=== PATIENT | female | born 1980 | race Caucasian/White ===

== ENCOUNTER 2020-04-05 19:11 | Emergency (ER) | payer OTHER, SELFPAY ==
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
[2020-04-05 19:12] VITALS: BP 164/90; PULSE 64; RESP 16; TEMP 36.7; O2SAT 100
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
[2020-04-05 21:09] VITALS: BP 148/92; PULSE 65; RESP 16; TEMP 36.6; O2SAT 100
== END 2020-04-05 21:09 | disposition home or self-care (01) ==
PROVIDERS: Emergency Provider Emergency Medicine
DX: S16.1XXA Strain of muscle, fascia and tendon at neck level, initial encounter (principal); V43.52XA Car driver injured in collision with other type car in traffic accident, initial encounter
CPT/HCPCS: 72125; 73521; 81025; 99284

== ENCOUNTER 2024-09-30 12:02 | Emergency (ER) | payer OTHER, SELFPAY ==
--- OUTSIDE RECORDS SUMMARY | 2024-09-30 12:05 | XMS_ITS | Referral Summary ---
Author Organization [facility] Address [address] [place] [address] Care Team Providers Care Nutrient Management Specialist Name Role Phone Luigi Yuan MD Primary Care Provider [phone] Encounters Date Type Department Care Team Description 07/16/2024 Telephone [facility] [address] [facility] [address] [place] [address] Antionette Reid NP 07/16/2024 Orders Only [facility] [address] [facility] [address] [place] [address] Antionette Reid NP Abnormal mammogram of right breast (Primary Dx) 07/14/2024 10:14 AM DIRECTOR GLOBAL DEVELOPMENT - 07/14/2024 11:59 PM DIRECTOR GLOBAL DEVELOPMENT Hospital Encounter [facility] ([facility]) [address] [place] [phone] Abnormal mammogram of right breast Discharge Disposition: Discharge to home or self care 07/14/2024 10:07 AM DIRECTOR GLOBAL DEVELOPMENT - 07/14/2024 11:59 PM DIRECTOR GLOBAL DEVELOPMENT Hospital Encounter [facility] ([facility]) [address] [place] [id number] Abnormal mammogram of right breast Discharge Disposition: Discharge to home or self care from Last 3 Months Allergies Active Allergy Reactions Criticality Noted Date Comments Mold Cough,Eye irritation,Headache Low 2020 Medications fluticasone propionate (FLONASE) 50 mcg/actuation nasal spray Administer 1 spray into each nostril daily Active azelastine (ASTELIN) 137 mcg (0.1 %) nasal spray Administer 1 spray into each nostril 2 (two) times a day Use in each nostril as directed Active diazePAM (VALIUM) 5 mg tabletIndicatio ns:Muscle Spasm Place vaginally every other night. 15 tablet 3 Active Active Problems Problem Noted Date Diagnosed Date Gluten intolerance 01/30/2021 Routine physical examination 10/13/2020 Assessment & Plan (10/31/2022 9:05 AM DIRECTOR GLOBAL DEVELOPMENT): Checking labs per routine and pertaining to problems listed . HM items reviewed and updated . No new concerns. Assessment & Plan (10/25/2021 8:34 AM DIRECTOR GLOBAL DEVELOPMENT): Checking labs per routine and pertaining to problems listed . HM items reviewed and updated . No new concerns. Assessment & Plan (10/13/2020 4:19 PM DIRECTOR GLOBAL DEVELOPMENT): Checking labs per routine and pertaining to problems listed . HM items reviewed and updated . No new concerns. Chronic pain of both knees 10/13/2020 Assessment & Plan (10/31/2022 9:12 AM DIRECTOR GLOBAL DEVELOPMENT): Trial of osteobiflex supplements Assessment & Plan (10/13/2020 4:42 PM DIRECTOR GLOBAL DEVELOPMENT): Likely some tendonitis. Trial of voltaren gel. Further eval if progressive complaints. Pain of right hip joint 07/30/2019 Assessment & Plan (07/30/2019 10:21 AM DIRECTOR GLOBAL DEVELOPMENT): Working on physical therapy first. No obvious complications. Psoriasis 10/23/2018 Assessment & Plan (10/25/2021 8:52 AM DIRECTOR GLOBAL DEVELOPMENT): Minimal now. Assessment & Plan (10/13/2020 4:30 PM DIRECTOR GLOBAL DEVELOPMENT): No overt dermatologic complaints with this. Anemia 01/23/2016 Overview (10/23/2018): Anemia Assessment & Plan (10/25/2021 8:51 AM DIRECTOR GLOBAL DEVELOPMENT): Checking labs Assessment & Plan (10/13/2020 4:29 PM DIRECTOR GLOBAL DEVELOPMENT): Very low iron and encouraged supplements. She will try and take more often. 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 Assessment & Plan (05/17/2019 7:01 AM CDT): Most symptoms c/w ibs C. However she remains concerned given the distension. No other concerns Offer linzess. Female stress incontinence 12/27/2010 Incomplete bladder emptying 12/27/2010 Uterovaginal prolapse, incomplete 12/27/2010 Generalized anxiety disorder 12/06/2010 Assessment & Plan (10/31/2022 9:07 AM DIRECTOR GLOBAL DEVELOPMENT): Doing great with rare xanax Assessment & Plan (10/25/2021 8:36 AM DIRECTOR GLOBAL DEVELOPMENT): No obvious recent symptoms. She has a lot of stress. Assessment & Plan (10/13/2020 4:30 PM DIRECTOR GLOBAL DEVELOPMENT): She is doing great with this with only very rare xanax. Resolved Problems Problem Noted Date Diagnosed Date Resolved Date Generalized abdominal pain 05/14/2019 0 10/13/2020 Immunizations Name Administration Dates Next Due Tdap 10/31/2022 Social History Tobacco Use Types Packs/Day Years Used Date Smoking Tobacco: Never Smokeless Tobacco: Never Alcohol Use Standard Drinks/Week Comments Yes 1 (1 standard drink = 0.6 oz pur e alcohol) AUDIT-C Answer Date Recorded Q1: How often do you have a drink containing alc ohol? 2-4 times a month 10/31/2022 Q2: How many drinks containi ng alcohol do you have on a typical day when you are drinking? 1 or 2 10/31/2022 Q3: How often do you have si x or more drinks on one occasion? Never 10/31/2022 PHQ-2 Answer Date Recorded PHQ-2 Total Score (If total score is 3 or more points, staff should administer the PHQ-9) 0 10/31/2022 Comments No Sex and Gender Information Value Date Recorded Sex Assigned at Not on file Legal Sex Female 3:58 AM DIRECTOR GLOBAL DEVELOPMENT Gender Identity Female 10/12/2020 4:44 PM DIRECTOR GLOBAL DEVELOPMENT Sexual Orientation Straight 10/12/2020 4: 44 PM DIRECTOR GLOBAL DEVELOPMENT Last Filed Vital Signs Vital Sign Reading Time Taken Comments Blood Pressure 124/78 02/18/2023 4:04 PM CDT Pulse 80 10/31/2022 8:47 AM DIRECTOR GLOBAL DEVELOPMENT Temperature 36.6 C (97.9 F) 10/25/2021 8:23 AM DIRECTOR GLOBAL DEVELOPMENT Respiratory Rate - - Oxygen Saturation 98% 10/31/2022 8:47 AM DIRECTOR GLOBAL DEVELOPMENT Inhaled Oxygen Concentration - - Weight 67.6 kg (149 lb) 02/18/2023 4:04 PM CDT Height 157.5 cm (5' 2 ) 02/18/2023 4:04 PM CDT Body Mass Index 27.25 02/18/2023 4:04 PM CDT Plan of Treatment Not on file Procedures Procedure Name Priority Date/Time Associated Diagnosis Comments US BREAST RIGHT LIMITED Schedule Routine, Read Routine (OP Routine) 07/14/2024 11:04 AM DIRECTOR GLOBAL DEVELOPMENT Abnormal mammogram of right breast DIAGNOSTIC MAMMOGRAM RIGHT W MAURICIO Schedule Routine, Read Routine (OP Routine) 07/14/2024 10:56 AM DIRECTOR GLOBAL DEVELOPMENT Abnormal mammogram of right breast SCREENING MAMMOGRAM BILATERAL W MAURICIO Schedule Routine, Read Routine (OP Routine) 12/03/2023 1:29 PM CDT Screening mammogram, encounter for from Last 3 Months or Most Recently Relevant to Health Maintenance Results * US Breast Right Limited (07/14/2024 11:04 AM DIRECTOR GLOBAL DEVELOPMENT) Anatomical Region Laterality Modality Breast Right Ultrasound 07/14/2024 11:1 4 AM DIRECTOR GLOBAL DEVELOPMENT Impressions 07/14/2024 2:07 PM DIRECTOR GLOBAL DEVELOPMENT 1. Stable cyst/cluster of cysts within the right breast the 9 o'clock position 5 cm from the nipple, unchanged since 01/05/2024. Follow-up with right breast ultrasound in 6 months is recommended to ensure stability. 2. No new suspicious mammographic or sonographic findings in the right breast. OVERALL FINAL ASSESSMENT: BI-RADS Category 3: Probably Benign. RECOMMENDATION: Recommend follow-up diagnostic breast imaging in 6 months with bilateral diagnostic mammogram and right breast ultrasound. Dictated by: Ced Mensah MD The radiology attending physician has personally reviewed this study, and had reviewed and/or edited this written report and agrees with it. Electronically signed by: Kellee Holland M.D. Narrative 07/14/2024 2:07 PM DIRECTOR GLOBAL DEVELOPMENT EXAMINATION: RIGHT UNILATERAL DIGITAL DIAGNOSTIC MAMMOGRAM AND DIGITAL BREAST TOMOSYNTHESIS; RIGHT BREAST SONOGRAM HISTORY: 43-year-old female presenting for follow-up of category 3 probably benign right breast complicated cyst COMPARISON: Diagnostic mammogram and ultrasound dated 01/05/2024 and priors dating back to 2021. TECHNIQUE: Full field digital mammographic views of the RIGHT breast were performed, including computer aided detection (CAD) and digital breast tomosynthesis (DBT). Directed ultrasound evaluation of the RIGHT breast was performed. BREAST PARENCHYMAL COMPOSITION: The breasts are heterogeneously dense, which may obscure small masses. MAMMOGRAM FINDINGS: On spot compression images, there is a stable 0.8 cm equal density mass with partially obscured margins in the upper outer right breast at mid to posterior depth. There is no new suspicious mass, grouped calcifications, architectural distortion noted within the right breast. SONOGRAM FINDINGS: Targeted sonographic images of the RIGHT breast at the 9 o'clock position 5 cm from the nipple, there is an unchanged 0.9 cm x 0.6 cm x 0.2 cm circumscribed oval anechoic mass.. Procedure Note Kellee Holladn MD - 07/14/2024 EXAMINATION: RIGHT UNILATERAL DIGITAL DIAGNOSTIC MAMMOGRAM AND DIGITAL BREAST TOMOSYNTHESIS; RIGHT BREAST SONOGRAM HISTORY: 43-year-old female presenting for follow-up of category 3 probably benign right breast complicated cyst COMPARISON: Diagnostic mammogram and ultrasound dated 01/05/2024 and priors dating back to 2021. TECHNIQUE: Full field digital mammographic views of the RIGHT breast were performed, including computer aided detection (CAD) and digital breast tomosynthesis (DBT). Directed ultrasound evaluation of the RIGHT breast was performed. BREAST PARENCHYMAL COMPOSITION: The breasts are heterogeneously dense, which may obscure small masses. MAMMOGRAM FINDINGS: On spot compression images, there is a stable 0.8 cm equal density mass with partially obscured margins in the upper outer right breast at mid to posterior depth. There is no new suspicious mass, grouped calcifications, architectural distortion noted within the right breast. SONOGRAM FINDINGS: Targeted sonographic images of the RIGHT breast at the 9 o'clock position 5 cm from the nipple, there is an unchanged 0.9 cm x 0.6 cm x 0.2 cm circumscribed oval anechoic mass.. IMPRESSION: 1. Stable cyst/cluster of cysts within the right breast the 9 o'clock position 5 cm from the nipple, unchanged since 01/05/2024. Follow-up with right breast ultrasound in 6 months is recommended to ensure stability. 2. No new suspicious mammographic or sonographic findings in the right breast. OVERALL FINAL ASSESSMENT: BI-RADS Category 3: Probably Benign. RECOMMENDATION: Recommend follow-up diagnostic breast imaging in 6 months with bilateral diagnostic mammogram and right breast ultrasound. Dictated by: Ced Mensah MD The radiology attending physician has personally reviewed this study, and had reviewed and/or edited this written report and agrees with it. Electronically signed by: Kellee Holland M.D. Antionette Reid NP IMG MAMMO PROCEDURES Final Result * Diagnostic Mammogram Right W Mauricio (07/14/2024 10:56 AM DIRECTOR GLOBAL DEVELOPMENT) Anatomical Region Laterality Modality Breast Right Mammography 07/14/2024 11:1 4 AM DIRECTOR GLOBAL DEVELOPMENT Impressions 07/14/2024 2:07 PM DIRECTOR GLOBAL DEVELOPMENT 1. Stable cyst/cluster of cysts within the right breast the 9 o'clock position 5 cm from the nipple, unchanged since 01/05/2024. Follow-up with right breast ultrasound in 6 months is recommended to ensure stability. 2. No new suspicious mammographic or sonographic findings in the right breast. OVERALL FINAL ASSESSMENT: BI-RADS Category 3: Probably Benign. RECOMMENDATION: Recommend follow-up diagnostic breast imaging in 6 months with bilateral diagnostic mammogram and right breast ultrasound. Dictated by: Ced Mensah MD The radiology attending physician has personally reviewed this study, and had reviewed and/or edited this written report and agrees with it. Electronically signed by: Kellee Holland M.D. Narrative 07/14/2024 2:07 PM DIRECTOR GLOBAL DEVELOPMENT EXAMINATION: RIGHT UNILATERAL DIGITAL DIAGNOSTIC MAMMOGRAM AND DIGITAL BREAST TOMOSYNTHESIS; RIGHT BREAST SONOGRAM HISTORY: 43-year-old female presenting for follow-up of category 3 probably benign right breast complicated cyst COMPARISON: Diagnostic mammogram and ultrasound dated 01/05/2024 and priors dating back to 2021. TECHNIQUE: Full field digital mammographic views of the RIGHT breast were performed, including computer aided detection (CAD) and digital breast tomosynthesis (DBT). Directed ultrasound evaluation of the RIGHT breast was performed. BREAST PARENCHYMAL COMPOSITION: The breasts are heterogeneously dense, which may obscure small masses. MAMMOGRAM FINDINGS: On spot compression images, there is a stable 0.8 cm equal density mass with partially obscured margins in the upper outer right breast at mid to posterior depth. There is no new suspicious mass, grouped calcifications, architectural distortion noted within the right breast. SONOGRAM FINDINGS: Targeted sonographic images of the RIGHT breast at the 9 o'clock position 5 cm from the nipple, there is an unchanged 0.9 cm x 0.6 cm x 0.2 cm circumscribed oval anechoic mass.. Procedure Note Kellee Holland MD - 07/14/2024 EXAMINATION: RIGHT UNILATERAL DIGITAL DIAGNOSTIC MAMMOGRAM AND DIGITAL BREAST TOMOSYNTHESIS; RIGHT BREAST SONOGRAM HISTORY: 43-year-old female presenting for follow-up of category 3 probably benign right breast complicated cyst COMPARISON: Diagnostic mammogram and ultrasound dated 01/05/2024 and priors dating back to 2021. TECHNIQUE: Full field digital mammographic views of the RIGHT breast were performed, including computer aided detection (CAD) and digital breast tomosynthesis (DBT). Directed ultrasound evaluation of the RIGHT breast was performed. BREAST PARENCHYMAL COMPOSITION: The breasts are heterogeneously dense, which may obscure small masses. MAMMOGRAM FINDINGS: On spot compression images, there is a stable 0.8 cm equal density mass with partially obscured margins in the upper outer right breast at mid to posterior depth. There is no new suspicious mass, grouped calcifications, architectural distortion noted within the right breast. SONOGRAM FINDINGS: Targeted sonographic images of the RIGHT breast at the 9 o'clock position 5 cm from the nipple, there is an unchanged 0.9 cm x 0.6 cm x 0.2 cm circumscribed oval anechoic mass.. IMPRESSION: 1. Stable cyst/cluster of cysts within the right breast the 9 o'clock position 5 cm from the nipple, unchanged since 01/05/2024. Follow-up with right breast ultrasound in 6 months is recommended to ensure stability. 2. No new suspicious mammographic or sonographic findings in the right breast. OVERALL FINAL ASSESSMENT: BI-RADS Category 3: Probably Benign. RECOMMENDATION: Recommend follow-up diagnostic breast imaging in 6 months with bilateral diagnostic mammogram and right breast ultrasound. Dictated by: Ced Mensah MD The radiology attending physician has personally reviewed this study, and had reviewed and/or edited this written report and agrees with it. Electronically signed by: Kellee Holland M.D. Antionette Reid NP IMG MAMMO PROCEDURES Final Result * (ABNORMAL) Screening Mammogram Bilateral W Mauricio (12/03/2023 1:29 PM CDT) Anatomical Region Laterality Modality Breast Bilateral Mammography Narrative 12/03/2023 4:41 PM CDT Examination: Screening Mammogram Bilateral W Mauricio: 12/03/23 Clinical: Screening mammogram, encounter for. Prior Study Comparisons: Comparison was made to the prior available relevant studies at the time of interpretation. Findings: Screening Mammogram Bilateral W Mauricio Right 1) Asymmetry: There is an asymmetry seen in the upper region of the right breast. Left No significant masses, malignant type calcifications, skin thickening, nipple retraction, or significant lymphadenopathy is noted in this breast. The CAD review showed no significant findings. The breasts are heterogeneously dense, which may obscure small masses. The patient will be notified of results by letter. Impression: BI-RADS ATLAS category (overall): 0 - Incomplete: Needs Additional Imaging Evaluation Overall Assessment: 0 - Incomplete: Needs Additional Imaging Evaluation Recommendation: - Additional Mammography views with possible ultrasound. us Self Screening Mammogram IMG MAMMO PROCEDURES Fi nal Result from Last 3 Months or Most Recently Relevant to Health Maintenance Insurance [employer] [facility] Address: [place] [address] [employer] Address: [place] [address] [facility] [facility] Address: [place] [phone] [facility] [employer] [facility] Address: [address] [place] [id number] Care Teams Nutrient Management Specialist Relationship Specialty Start Date End Date Luigi Yuan MD PCP - General 04/02/17
--- OUTSIDE RECORDS SUMMARY | 2024-09-30 12:05 | XMS_ITS | Referral Summary ---
Author Organization [facility] Address [address] [facility] [place] [address] Care Team Providers Care Corporate Fitness Program Coordinator Name Role Phone Luigi Yuan MD Primary Care Provider [phone] Source Comments [facility],non-owned Affiliates and Associated Physician Practices is amultiple site organization consisting of ambulatory clinics and hospital sitesin [place], [place], [place] and [place]. This disclosure is being madepursuant to the Care Everywhere program and may not contain all information available regarding this patient. Last updated 18.[employer] [facility] Allergies No known active allergies Medications Be aware that medications may not be up to date on this document. Always verify current medications with the patient. No known medications Active Problems Problem Noted Date Diagnosed Date Anxiety Psoriasis Social History Tobacco Use Types Packs/Day Years Used Date Smoking Tobacco: Never Smokeless Tobacco: Never Tobacco Cessation:Counseling Given: No Sex and Gender Information Value Date Recorded Sex Assigned at Not on file Gender Identity Not on file Sexual Orientation Not on file Last Filed Vital Signs Vital Sign Reading Time Taken Comments Blood Pressure 103/81 05/25/2022 11:05 AM CDT Pulse 98 05/25/2022 11:05 AM CDT Temperature 36.6 C (97.8 F) 05/25/2022 11:05 AM CDT Respiratory Rate 18 05/25/2022 11:05 AM CDT Oxygen Saturation 100% 05/25/2022 11:05 AM CDT Inhaled Oxygen Concentration - - Weight 63.5 kg (140 lb) 05/25/2022 11:05 AM CDT Height 157.5 cm (5' 2 ) 09/25/2016 2:50 PM RUSSIAN HISTORY PROFESSOR Body Mass Index 25.61 09/25/2016 2:50 PM RUSSIAN HISTORY PROFESSOR Plan of Treatment Not on file Care Teams Corporate Fitness Program Coordinator Relationship Specialty Start Date End Date Luigi Yuan MD [address] [place] [address] DR Werner [address] [phone] PCP - General Internal Medicine 09/25/16
--- OUTSIDE RECORDS SUMMARY | 2024-09-30 12:05 | XMS_ITS | Clinical Summary ---
Author Organization [facility] Address [address] [place] [address] Care Team Providers Care Manager Of Change Name Role Phone Luigi Yuan MD Primary Care Provider [phone] Allergies Active Allergy Reactions Criticality Noted Date [...] 10/13/2020 Assessment & Plan (10/31/2022 9:05 AM TECHNICAL PHOTOGRAPHER): Checking labs per routine and pertaining to problems listed . HM items reviewed and updated . No new concerns. Assessment & Plan (10/25/2021 8:34 AM TECHNICAL PHOTOGRAPHER): Checking labs per routine and pertaining to problems listed . HM items reviewed and updated . No new concerns. Assessment & Plan (10/13/2020 4:19 PM TECHNICAL PHOTOGRAPHER): Checking labs per routine and pertaining to problems listed . HM items reviewed and updated . No new concerns. Chronic pain of both knees 10/13/2020 Assessment & Plan (10/31/2022 9:12 AM TECHNICAL PHOTOGRAPHER): Trial of osteobiflex supplements Assessment & Plan (10/13/2020 4:42 PM TECHNICAL PHOTOGRAPHER): Likely some tendonitis. Trial of voltaren gel. Further eval if progressive complaints. Pain of right hip joint 07/30/2019 Assessment & Plan (07/30/2019 10:21 AM TECHNICAL PHOTOGRAPHER): Working on physical therapy first. No obvious complications. Psoriasis 10/23/2018 Assessment & Plan (10/25/2021 8:52 AM TECHNICAL PHOTOGRAPHER): Minimal now. Assessment & Plan (10/13/2020 4:30 PM TECHNICAL PHOTOGRAPHER): No overt dermatologic complaints with this. Anemia 01/23/2016 Overview (10/23/2018): Anemia Assessment & Plan (10/25/2021 8:51 AM TECHNICAL PHOTOGRAPHER): Checking labs Assessment & Plan (10/13/2020 4:29 PM TECHNICAL PHOTOGRAPHER): Very low iron and encouraged supplements. She will try and take more often. Irritable bowel syndrome 06/11/2013 Overview (10/31/2022): Chronic constipation Assessment & Plan (10/31/2022 9:07 AM TECHNICAL PHOTOGRAPHER): She will try some fiber supplements Assessment & Plan (10/13/2020 4:30 PM TECHNICAL PHOTOGRAPHER): For now treating supplemental Assessment & Plan (07/30/2019 10:20 AM TECHNICAL PHOTOGRAPHER): Continue with current regimen > Miralax for a while as a trial and investgation of food issues with primary health care nurse. Assessment & Plan (05/17/2019 7:01 AM CDT): Most symptoms c/w ibs C. However she remains concerned given the distension. No other concerns Offer linzess. Female stress incontinence 12/27/2010 Incomplete bladder emptying 12/27/2010 Uterovaginal prolapse, incomplete 12/27/2010 Generalized anxiety disorder 12/06/2010 Assessment & Plan (10/31/2022 9:07 AM TECHNICAL PHOTOGRAPHER): Doing great with rare xanax Assessment & Plan (10/25/2021 8:36 AM TECHNICAL PHOTOGRAPHER): No obvious recent symptoms. She has a lot of stress. Assessment & Plan (10/13/2020 4:30 PM TECHNICAL PHOTOGRAPHER): She is doing great with this with only very rare xanax. Resolved Problems Problem Noted Date Diagnosed Date Resolved Date Generalized abdominal pain 05/14/2019 0 10/13/2020 Encounters Date Type Department Care Team Description 07/16/2024 Telephone [facility] [address] [facility] [address] [place] [phone] Antionette Reid NP 07/16/2024 Orders Only [facility] [address] [facility] [address] [place] [phone] Antionette Reid NP Abnormal mammogram of right breast (Primary Dx) 07/14/2024 10:14 AM TECHNICAL PHOTOGRAPHER - 07/14/2024 11:59 PM TECHNICAL PHOTOGRAPHER Hospital Encounter [facility] [address] [place] [address] Abnormal mammogram of right breast Discharge Disposition: Discharge to home or self care 07/14/2024 10:07 AM TECHNICAL PHOTOGRAPHER - 07/14/2024 11:59 PM TECHNICAL PHOTOGRAPHER Hospital Encounter [facility] [place] [address] Abnormal mammogram of right breast Discharge Disposition: Discharge to home or self care from Last 3 Months Immunizations Name Administration Dates Next Due Tdap 10/31/2022 Surgical History Surgery Date Site/Laterality Comments NO PAST SURGERIES Medical History Medical History Date Comments Allergic rhinitis Psoriasis Concussion 1996 Pyelonephritis 1989 Anxiety Migraine Chronic constipation Family History Medical History Relation Name Comments Depression Brother Hypertension Father Thyroid disease Father Thyroid disease Mother Urticaria Mother Thyroid disease Sister Relation Name Status Comments Brother Alive Father Alive Mother Alive Sister Alive Social History Tobacco Use Types Packs/Day Years [...] on file Legal Sex Female 3:58 AM TECHNICAL PHOTOGRAPHER Gender Identity Female 10/12/2020 4:44 PM TECHNICAL PHOTOGRAPHER Sexual Orientation Straight 10/12/2020 4: 44 PM TECHNICAL PHOTOGRAPHER Obstetrics History Para Term AB IAB SAB Ectopic Multiple Livin g Live Births 0 0 0 0 0 0 0 0 0 0 0 Last Filed Vital Signs Vital Sign Reading Time Taken Comments Blood Pressure 124/78 02/18/2023 4:04 PM CDT Pulse 80 10/31/2022 8:47 AM TECHNICAL PHOTOGRAPHER Temperature 36.6 C (97.9 F) 10/25/2021 8:23 AM TECHNICAL PHOTOGRAPHER Respiratory Rate - - Oxygen Saturation 98% 10/31/2022 8:47 AM TECHNICAL PHOTOGRAPHER Inhaled Oxygen Concentration - - Weight 67.6 kg (149 lb) 02/18/2023 4:04 PM CDT Height 157.5 cm (5' 2 ) 02/18/2023 4:04 PM CDT Body Mass Index 27.25 02/18/2023 4:04 PM CDT Plan of Treatment Health Maintenance Due Date Last Done Comments Cervical Cancer Screening 1981 Hepatitis C Screening 1981 Hepatitis B Screening 11/18/1999 Depression Screening 11/01/2023 10/31/2022, 10/26/19 Regular Well Visit/Exam 18-64 02/19/2024 02/18/2023, 10/31/2022, 02/12/2022, Additional history exists Covid-19 Vaccine (3 - season) 2024 04/25/2021, 03/14/2021 Influenza Vaccine (#1) 2024 Breast Cancer Screening-Mammogram 12/02/2024 12/03/2023, 03/18/2022 DTaP/Tdap/Td Vaccine (2 - Td or Tdap) 10/31/2032 10/31/2022 HPV Vaccines Aged Out No longer eligi ble based on patient's age to complete this topic Pneumococcal vaccine <65 Aged Out No longer eligible based on patient's age to complete this topic Varicella Vaccines Discontinued Procedures Procedure Name Priority Date/Time Associated Diagnosis Comments US BREAST RIGHT LIMITED Schedule Routine, Read Routine (OP Routine) 07/14/2024 11:04 AM TECHNICAL PHOTOGRAPHER Abnormal mammogram of right breast DIAGNOSTIC MAMMOGRAM RIGHT W MAURICIO Schedule Routine, Read Routine (OP Routine) 07/14/2024 10:56 AM TECHNICAL PHOTOGRAPHER Abnormal mammogram of right breast SCREENING MAMMOGRAM BILATERAL W MAURICIO Schedule Routine, Read Routine (OP Routine) 12/03/2023 1:29 PM CDT Screening mammogram, encounter for from Last 3 Months or Most Recently Relevant to Health Maintenance Results * US Breast Right Limited (07/14/2024 11:04 AM TECHNICAL PHOTOGRAPHER) Anatomical Region Laterality Modality Breast Right Ultrasound 07/14/2024 11:1 4 AM TECHNICAL PHOTOGRAPHER Impressions 07/14/2024 2:07 PM TECHNICAL PHOTOGRAPHER 1. Stable cyst/cluster of cysts within the [...] Kellee Holland M.D. Narrative 07/14/2024 2:07 PM TECHNICAL PHOTOGRAPHER EXAMINATION: RIGHT UNILATERAL DIGITAL DIAGNOSTIC MAMMOGRAM AND [...] Mammogram Right W Mauricio (07/14/2024 10:56 AM TECHNICAL PHOTOGRAPHER) Anatomical Region Laterality Modality Breast Right Mammography 07/14/2024 11:1 4 AM TECHNICAL PHOTOGRAPHER Impressions 07/14/2024 2:07 PM TECHNICAL PHOTOGRAPHER 1. Stable cyst/cluster of cysts within the [...] Kellee Holland M.D. Narrative 07/14/2024 2:07 PM TECHNICAL PHOTOGRAPHER EXAMINATION: RIGHT UNILATERAL DIGITAL DIAGNOSTIC MAMMOGRAM AND [...] Most Recently Relevant to Health Maintenance Insurance [id number] H[facility]/PPO Address: [address] [place] [address] [facility] HMO/PPO Address: [place] [address] [facility] HMO/PPO Address: [address] [place], [place] [id number] [facility] H[facility]/PPO Address: [facility] [id number] [place] [address] Care Teams Manager Of Change Relationship Specialty Start Date End Date Luigi Yuan MD PCP - General 04/02/17
--- OUTSIDE RECORDS SUMMARY | 2024-09-30 12:05 | XMS_ITS | Clinical Summary ---
Author Organization [facility] [employer] Address [address] [facility] [place] [address] Care Team Providers Care Voice Intercept Technician Name Role Phone Luigi Yuan MD Primary Care Provider [phone] Source Comments [facility] [employer],non-owned Affiliates and Associated Physician Practices is amultiple site organization consisting of ambulatory clinics and hospital sitesin [place], [place], [place] and [place]. This disclosure is being madepursuant to the Care Everywhere program and may not contain all information available regarding this patient. Last updated 18.[employer] Allergies No known active allergies Medications Be aware that medications may not be up to date on this document. Always verify current medications with the patient. No known medications Active Problems Problem Noted Date Diagnosed Date Anxiety Psoriasis Family History Medical History Relation Name Comments Hypertension Father SC Maternal Grandfather SC Maternal Grandmother Hypertension Mother Psoriasis Mother Leukemia Paternal Grandmother Relation Name Status Comments Father Maternal Grandfather Maternal Grandmother Mother Paternal Grandmother Social History Tobacco Use Types Packs/Day Years [...] cm (5' 2 ) 09/25/2016 2:50 PM REAL ESTATE UTILIZATION OFFICER Body Mass Index 25.61 09/25/2016 2:50 PM REAL ESTATE UTILIZATION OFFICER Plan of Treatment Health Maintenance Due Date Last Done Comments LIPID TESTING 1981 PAP SMEAR 1981 HIV SCREENING 1996 HEPATITIS C SCREENING 11/13/1999 DTAP/TDAP/TD VACCINES (1 - Tdap) 2000 HEPATITIS B VACCINE (1 of 3 - 19+ 3-dose series) 2000 MAMMOGRAM 03/18/2024 03/18/2022 COVID-19 VACCINE (3 - 2023-2 5 season) 2024 04/25/2021, 03/14/2021 INFLUENZA VACCINE (#1) 2024 DEPRESSION SCREENING 08/25/2024 ZOSTER VACCINE (1 of 2) 11/18/2031 HIB VACCINE Aged Out No longer eligi ble based on patient's age to complete this topic HPV VACCINE Aged Out No longer eligi ble based on patient's age to complete this topic MENINGOCOCCAL (Group B) VACCINE Aged Out No longer eligible b ased on patient's age to complete this topic MENINGOCOCCAL VACCINE Aged Out No carey heath eligible based on patient's age to complete this topic PNEUMOCOCCAL VACCINE Aged Out No long er eligible based on patient's age to complete this topic Care Teams Voice Intercept Technician Relationship Specialty Start Date End Date Luigi Yuan MD [address] [facility] [address] Alphonso LIEBERMAN [address] [place] [phone] PCP - General Internal Medicine 09/25/16
--- OUTSIDE RECORDS SUMMARY | 2024-09-30 12:05 | XMS_ITS | Patient Health Summary ---
Author Organization [facility] [employer] Address [address] [place] [address] Care Team Providers Care Moss Gatherer Name Role Phone Luigi Yuan MD Primary Care Provider [phone] [facility] [employer] [facility],non-owned Affiliates and Associated Physician Practices is amultiple site organization consisting of ambulatory clinics and hospital sitesin [place], [place], [place] and [place]. This disclosure is being madepursuant to the Care Everywhere program and may not contain all information available regarding this patient. Last updated 18.[facility] [employer] Allergies No known active allergies Medications Be [...] cm (5' 2 ) 09/25/2016 2:50 PM CLINICAL REHABILITATION COORDINATOR Body Mass Index 25.61 09/25/2016 2:50 PM CLINICAL REHABILITATION COORDINATOR Procedures * STREP A SCREEN - POCT (IP) URGENT CARE(Performed 05/25/2022) Performed for strep throat * STREP A SCREEN - POINT OF CARE (AMB) [facility](Performed 09/25/2016) Performed for Nasopharyngitis * CULTURE URINE COMPREHENSIVE(Performed 12/27/2010) * URINALYSIS - POINT OF CARE (AMB) [facility](Performed 08/25/1998) Results * (ABNORMAL) STREP A SCREEN - POCT (IP) URGENT CARE (05/25/2022 11:17 AM CDT) Strep A Rapid POCT Positive(A ) Negative [facility] QC Verified Yes Yes [facility] Throat ENTIRE THROAT (SURFACE REGION OF NECK) / Unknown 05/25/2022 11:17 AM CDT Nataliya Mcghee BREADING MACHINE TENDER-BUSHING PRESS OPERATOR LAB - POINT O F CARE ORDERABLES Performing Organization Address City/State/[facility] Co de Phone Number [facility] [address] [phone] * STREP A SCREEN (09/25/2016) Pathologist [facility] Strep A Rapid POCT Negative Negative Strep A Internal Control Present Lot # [id number] Expiration Date 05/30/18 Throat ENTIRE THROAT (SURFACE REGION OF NECK) / Unknown 09/25/2016 Radha Mcintyre BREADING MACHINE TENDER-BUSHING PRESS OPERATOR LAB - POINT OF CARE ORDERABLES * CULTURE URINE COMPREHENSIVE (12/27/2010 12:00 AM CDT) Pathologist [facility] Culture Urine Comprehensive Final report [facility] (BEAKER) Result 1 [facility] (BEAKER) Comment:No growth in 36 - 48 hours. 12/27/2010 12/27/2010 8:3 0 PM CDT Narrative [facility] (BEAKER) - 12/29/2010 8:07 PM CDT Performed at: [facility] [place] [id number] Ug Designer: Ivette Mckay MD, Phone: [phone] Luis Alfredo Henriquez MD LAB - MICROBIOLOGY O RDERABLES Performing Organization Address City/[facility]/ZIP Co de Phone Number [facility] (BEEPI) * URINALYSIS - POINT OF CARE (AMB) [facility] (08/25/1998 12:00 AM CLINICAL REHABILITATION COORDINATOR) Glucose UA neg [facility] Bilirubin UA POCT neg [facility] Ketones UA POCT neg [facility] Specific [place] UA 1.005 [facility] Blood Urine POCT neg [facility] pH UA 8.0 [facility] Protein UA neg [facility] Urobilinogen UA neg [facility] Nitrite UA neg [facility] WBC UA neg [facility] Urine specimen (specimen) 08/25/1998 Luis Alfredo Henriquez MD LAB - POINT OF CARE ORDERABLES Performing Organization Address [facility]/ZIP Co de Phone Number [facility] Care Teams Moss Gatherer Relationship Specialty Start Date End Date Luigi Yuan MD [address] [place] [address] DR Alphonso LIEBERMAN [address] [place] [phone] PCP - General Internal Medicine 09/25/16
--- OUTSIDE RECORDS SUMMARY | 2024-09-30 12:05 | XMS_ITS | Clinical Summary ---
Author Organization [facility] Address [address] [place] [address] Care Team Providers Care Emergency Veterinarian Name Role Phone Unavailable Primary Care Provider Unavailabl e Social History Tobacco Use Types Packs/Day Years Used Date Smoking Tobacco: Never Assessed Comments Unknown Sex and Gender Information Value Date Recorded Sex Assigned at Not on file Legal Sex Female 4:54 PM CDT Gender Identity Not on file Sexual Orientation Not on file Plan of Treatment Health Maintenance Due Date Last Done Comments Cervical Cancer Screening Pa p Smear (Age 30 to 64) Every 3 Years 1981 Annual Physical 1984 Hepatitis C 11/18/1999 DTaP, Tdap and Td Vaccines ( 1 - Tdap) 2000 Hepatitis B Vaccines (1 of 3 - 19+ 3-dose series) 2000 Cervical Cancer Screening Pa p with HPV Testing (Age 30 to 64) Every 5 Years 11/18/2011 Cervical Cancer Screening with HPV 11/18/2011 Mammogram Screening 2021 COVID-19 Vaccine (2023-2 5 season) 2024 Influenza Adult (#1) 2024 HPV Vaccines Aged Out No longer eligi ble based on patient's age to complete this topic Meningococcal B Vaccine Aged Out No l onger eligible based on patient's age to complete this topic Meningococcal Vaccine Aged Out No carey heath eligible based on patient's age to complete this topic Pneumococcal Vaccine: Pediat rics (0 to 5 Years) and At-Risk Patients (6 to 64 Years) Aged Out No longer eligible b ased on patient's age to complete this topic RSV Immunizations Under 20 Months Aged Out No longer eligible based on patient's age to complete this topic
--- NOTE | 2024-09-30 12:09 | ED_ITS ---
HPI - URI/Sore Throat General Chief Complaint: Upper Respiratory Infection Stated Complaint: cough Time Seen by Provider: 09/30/24 12:05 Source: patient Mode of arrival: ambulatory Limitations: no limitations History of Present Illness HPI Narrative: Patient is a 43-year-old female who presents with 4 days of persistent cough. Patient states cough is worse at night it is productive. Denies any other upper respiratory symptoms, nausea, vomiting, diarrhea. Has been taking Robitussin with no relief. Related Data Allergies Allergy/AdvReac Type Severity Reaction Status Date / Time No Known Allergies Allergy Verified 09/30/24 12:16 Review of Systems Review of Systems: All systems reviewed & are unremarkable except as noted in HPI and below Constitutional: Constitutional: Denies chills, Denies fatigue, Denies feve r(s), Denies malaise and Denies weakness Eyes: Eyes: Denies blurry vision, Denies itchy eyes and Denies loss of vision ENT: Denies otalgia, Denies nasal congestion, Denies sinus pain and Denies sore throat Cardiovascular: Cardiovascular: Denies chest pain, Denies irregular heart rhythm and Denies dyspnea Respiratory: Respiratory: Reports cough and Denies dyspnea Gastrointestinal: Gastrointestinal: Denies abdominal pain, Denies diarrhea, Denies nausea and Denies vomiting Musculoskeletal: Musculoskeletal: Denies back pain, Denies myalgias and Denies arthralgias Integumentary/Breasts: Skin/Breast: Denies pruritus and Denies rash Neurologic: Denies headache(s), Denies loss of vision and Denies weakness Psychiatric: Psychiatric: Reports no additional psychiatric complaints Endocrine: Endocrine: Denies fatigue Allergic/Immunologic: Allergic/Immunologic: Denies itchy eyes PMFSH Past Medical History Medical History History of panic disorder Social History Social History Substance use: never Comments At time of signature, agree with nursing past medical, surgical, social and family history. There is no relevant family history pertinent to the presenting complaint. Exam Const: General: cooperative, healthy appearing, comfortable, no acute distress and well nourished Nutritional Appearance: well nourished Orientation/consciousness: patient oriented x3 Limitations: no limitations HENMT: Head: normal to inspection, normocephalic and atraumatic Ears: hearing grossly normal bilaterally, external ears normal, TM's normal bilaterally, EAC's normal and no periauricular adenopathy Face/Nose/Sinus: Normal external nose present, Abnormal mucous membranes and turbinates present erythematous bilateral and diffuse, normal facial exam, sinuses nontender and face symmetric Face and sinus: normal facial exam, sinuses nontender and face symmetric Mouth: Yes Normal oral and palatal mucosa present, Yes lip normal, Yes tongue normal, Yes Normal salivary glands and ducts present, Yes oropharynx normal and Yes moist mucous membranes Teeth and gingiva: dentition normal Throat: posterior oropharynx normal, tonsils normal and uvula midline Eyes: General: appearance normal, both eyes and all related structures Alignment and Position: alignment normal and position normal Periorbital: periorbital findings normal Eyelids: eyelids normal Pupils: Equal, round and reactive pupils present Neck: Neck: normal visual inspection, full ROM, no lymphadenopathy and supple Chest: Chest palpation & inspection: normal inspection of the chest and normal palpation of entire chest wall Resp: Effort & Inspection: normal respiratory effort, able to speak in complete sentences and Actively coughing dry Auscultation: clear to auscultation bilaterally, no crackles, no rales, no rhonchi and no wheezes Cardio: Rate: regular rate Rhythm: regular rhythm Heart sounds: S1 normal heart sound present and S2 normal heart sound present GI: Inspection: normal to inspection Skin: General skin exam: normal color and no rashes or lesions noted Neuro: General: patient oriented x3 and moves all extremities Cranial nerves: Yes Equal, round and reactive pupils present Speech: normal speech Gait exam (Neuro): Normal gait present Extrem: General: normal to inspection, full ROM and no edema Psych: Appearance: grossly normal and well kempt Mental Status: mental status grossly normal Speech and movement: Normal speech and movement present Affect: normal affect Attitude: cooperative Thought process: Normal thought process present Course Course Emergency Course: Discharge instructions reviewed with patient, as well as provided in writing per nursing staff. The instructions also include specific and strict return/GO TO THE ER as well as f/u information. All questions have been answered, and the patient deny any further questions with discharge and discharge plan. Portions of this record may have been created with voice recognition software Level of Care: Express Care Visit Vital Signs Vital signs: Vital Signs Temperature 36.6 C 09/30/24 12:14 Pulse Rate 82 09/30/24 12:14 Respiratory Rate 18 09/30/24 12:14 Blood Pressure 111/59 L 09/30/24 12:14 Pulse Oximetry 100 09/30/24 12:14 Oxygen Delivery Room Air 09/30/24 12:14 Temperature 36.6 C 09/30/24 12:14 Pulse Rate 82 09/30/24 12:14 Respiratory Rate 18 09/30/24 12:14 Blood Pressure 111/59 L 09/30/24 12:14 Pulse Oximetry 100 09/30/24 12:14 Oxygen Delivery Room Air 09/30/24 12:14 Reviewed MDM - URI/Sore Throat MDM Narrative Medical decision making narrative: Pt well hydrated appearing, in no respiratory distress, hemodynamically stable. Recommend supportive care. The patient is stable at time of discharge the clinical impression was discussed and the patient was given the opportunity to ask questions, which were addressed as completely as possible given the information available at present. Anticipatory guidance and return to care precautions were discussed and the importance of primary care follow-up was stressed and encouraged. The patient voiced understanding of the plan, indications to return, and the need for follow-up. Differential diagnosis considered: Torres virus, strep pharyngitis, allergic rhinitis, upper respiratory tract infection, sinusitis, rhinosinusitis, nasopharyngitis. viral pharyngitis, otitis media, otitis externa, otitis effusion, foreign body, cerumen impaction, viral syndrome, and influenza.? Exam findings show no acute concerns or changes; patient is non-toxic appearing and is in no distress.? Patient is appropriate for outpatient treatment and follow- up.? Medical Records Attestation: I reviewed the patient's medical records. Discharge Plan Discharge Clinical Impression: Bronchitis Patient Disposition: Home, Self-Care Condition: Stable Instructions: Acute Bronchitis (ED) Additional Instructions: Use Tessalon Perles as needed for cough. Use inhaler with spacer as needed. Other symptomatic treatments include: -Alternate Tylenol and Motrin per package directions for fever or pain: Tylenol 650-1000mg by mouth every 4-6 hours. Do not exceed 4000mg in 24 hours. Advil (Ibuprofen) 600 mg by mouth every 6 hours. Do not exceed 2400mg in 24 hours. 8 AM: Tylenol 11 AM: Ibuprofen 2 PM: Tylenol 5 PM: Ibuprofen 8 PM: Tylenol 11 PM: Ibuprofen 2 AM: Tylenol 5 AM: Ibuprofen -Antihistamine medication such as Benadryl at night and Zyrtec/Claritin/Meeta during the day can help improve symptoms. -Use Flonase twice a day for 5 days then daily to help reduce the inflammation and dry up your sinuses. -You can also use Sudafed or Mucinex. Be sure to drink plenty of water with these medications at least 8 ounces with every dose and it is important to drink 8 to 10 glasses of water per day. Water is a natural decongestant -Eat and drink things that are easy to swallow, like tea or soup, or popsicles. -Oral rinses such as: Salt water gargles and/or may use topical anesthetic (eg. Chloraseptic spray) or lozenges to relieve dryness or throat pain). -Frequent hand washing or hand civil defense director is one of the best ways to prevent spread of infection. -Using a vaporizer or humidifier at night will also help thin secretions and help with coughing up phlegm. -Follow up with primary care provider in 3-5 days if condition is not improving - For new or worsening symptoms go directly to the nearest ER Patient Language: Bengali Prescriptions: New benzonatate 100 mg capsule 100 mg PO BID PRN (Reason: cough) Qty: 14 0RF albuterol sulfate 90 mcg/actuation HFA aerosol inhaler 2 puff inhalation QID PRN (Reason: shortness of breath or wheezing) Qty: 6.7 0RF (DME) Aerochamber MV Spacer See Rx Instructions .Route Qty: 1 0RF Rx Instructions: As directed Follow-up/Referrals: Kwabena,Luigi [Other] - 3 Days Time of Disposition: 12:26
[2024-09-30 12:14] VITALS: BP 111/59; PULSE 82; RESP 18; TEMP 36.6; O2SAT 100
== END 2024-09-30 12:28 | disposition home or self-care (01) ==
PROVIDERS: Emergency Provider Nurse Practitioner Family
DX: J40 Bronchitis, not specified as acute or chronic (principal)
CPT/HCPCS: 99213; G0463

== ENCOUNTER 2025-06-20 19:42 | Emergency (ER) | payer OTHER, SELFPAY ==
--- NOTE | ~2025-06-20 | CT_ITS ---
EXAMINATION: CT abdomen pelvis w con DATE: 06/20/2025 21:22 INDICATION: Generalized abdominal pain. TECHNIQUE: Computed tomography (CT) of the abdomen and pelvis was performed with 100 mL Omnipaque 350 intravenous contrast. Automated exposure control and iterative reconstruction technique were employed. The dose-length product was 392.24 mGy-cm. COMPARISON: None. FINDINGS: The visualized portions of the lung bases demonstrate minimal atelectasis. No pleural effusion. The heart size is normal. No pericardial effusion. The liver, gallbladder, spleen, pancreas, adrenal glands, and kidneys are normal. There is a 4.2 cm subserosal uterine fibroid. There are no dilated loops of bowel. There is liquid stool in the colon suggesting diarrhea. The appendix is not visualized. There are no pathologically enlarged lymph nodes. There is no free intraperitoneal fluid. There is mild thoracic and lumbar spondylosis. IMPRESSION: 1. Uterine fibroid. Reviewed, dictated and finalized at location E. IMPRESSION: 1. Uterine fibroid.
[2025-06-20 19:56] VITALS: BP 120/76; PULSE 93; RESP 16; TEMP 36.6; O2SAT 91
--- NOTE | 2025-06-20 20:12 | ED_ITS ---
HPI - Abdominal Pain General Chief Complaint: Abdominal Pain Stated Complaint: ABDOMINAL PAIN Time Seen by Provider: 06/20/25 19:55 History of Present Illness HPI narrative: This is a 44-year-old female with history of psoriasis who presents to the ED for abdominal pain. Patient states that 4 days ago, she had onset of epigastric abdominal pain which she does have occasionally but it began to radiate throughout abdomen which was unusual. She has had nausea but no vomiting. She has had a decreased appetite. Denies diarrhea, constipation, fevers, chills. No known sick contacts. She has seen multiple GI doctors in the past but it has been a few years. Last normal menstrual period was 05/21/2025. Related Data Allergies Allergy/AdvReac Type Severity Reaction Status Date / Time No Known Allergies Allergy Verified 06/20/25 20:21 Review of Systems 2 Review of Systems: Gen.: Denies fevers or chills Eyes: Denies eye pain or visual change ENT: Denies congestion Respiratory: Denies shortness of breath or cough CV: Denies chest pain or palpitations GI: As per HPI denies burning, urgency, frequency or hematuria Musculoskeletal: Denies back pain or muscle pain Neuro: Denies numbness, tingling, weakness or focal weakness Skin: Denies rash Except as documented, all other systems reviewed and negative [facility] Past Medical History Medical History History of panic disorder Social History Social History Substance use: never Exam 2 Narrative: APPEARANCE: No acute distress, nontoxic, resting in bed EYES: EOMI HEENT: Normocephalic, atraumatic, OMM RESPIRATORY: No respiratory distress Clear to auscultation bilaterally with no rhonchi wheezing or rales. CARDIOVASCULAR: Regular rate and rhythm without murmurs rubs or gallops. ABDOMINAL: Soft, nontender, nondistended, no rebound or guarding MUSCULOSKELETAl: Moves all extremities. No clubbing, cyanosis or edema. NEURO: Awake and alert. Following commands, speech normal, no focal deficits SKIN:: Warm, dry. No rashes lesions or abrasions PSYCHIATRIC: Normal affect/mood, Course Vital Signs Vital signs: Vital Signs Temperature 98 F 06/20/25 19:56 Pulse Rate 93 06/20/25 19:56 Respiratory Rate 16 06/20/25 19:56 Blood Pressure 120/76 06/20/25 19:56 Pulse Oximetry 91 06/20/25 19:56 Oxygen Delivery Room Air 06/20/25 19:56 Temperature 98 F 06/20/25 19:56 Pulse Rate 80 06/20/25 22:23 Respiratory Rate 16 06/20/25 22:23 Blood Pressure 118/76 06/20/25 22:23 Pulse Oximetry 99 06/20/25 22:23 Oxygen Delivery Room Air 06/20/25 19:56 MDM - Abdominal Pain MDM Narrative Medical decision making narrative: 44-year-old female Presenting for abdominal pain. On initial evaluation patient was in no acute distress afebrile, hemodynamic stable. Differentials include but are not limited to: ACS, Cholecystitis, choledocolithiasis, GERD, PUD, Pancreatitis, SBO, Cancer, AAA Notable exam findings: No abdominal tenderness, peritoneal signs Notable lab findings: Leukocytosis at 13.8. Mild anemia with hemoglobin 11.2. Bedside preg positive but HCG quant negative. Troponin negative. UA clear. Notable imaging findings: Liquid stool in the colon consistent with diarrheal disease with wall thickening of the small bowel consistent with mild enteritis Patient was deemed appropriate for discharge at this time. Patient was given a prescription for Zofran. She was educated adequate p.o. hydration. Given she has seen GI in the past for similar issues, she was given referral to Dr. Seth [facility] for further evaluation. Patient was advised follow-up with their PCP in the next week for re-evaluation. Patient was agreeable to this plan. Given strict return precautions. Medical Records Attestation: I reviewed the patient's medical records. Lab Data Attestation: I reviewed the patient's lab results. 06/20/25 20:13 06/20/25 20:13 Labs: Lab Results 06/20/25 06/20/25 06/20/25 Range/Units 20:07 20:12 20:13 WBC 13.8 H (4.5-10.0) K/mm3 RBC 4.82 (4.2-5.4) M/mm3 Hgb 11.2 L (12.0-15.0) g/dL Hct 36.6 L (37.0-47.0) % MCV 75.9 L (80-100) fl MCH 23.2 L (26-34) pg MCHC 30.6 L (32-36) g/dl RDW 16.2 H (11.5-14.5) % Plt Count 404 H (150-375) k/mm3 MPV 9.6 (7.4-10.4) fl Immature Gran % (Auto) Not Reportable Neut % (Auto) Not Reportable Lymph % (Auto) Not Reportable Redwood % (Auto) Not Reportable Eos % (Auto) Not Reportable Baso % (Auto) Not Reportable Lymph # (Auto) Not Reportable Redwood # (Auto) Not Reportable Eos # (Auto) Not Reportable Baso # (Auto) Not Reportable Abs Immat Gran (auto) Not Reportable Absolute Neuts (auto) Not Reportable Absolute Nucleated RBC Not Reportable Total Counted 100 Neutrophils % (Manual) 52 (46-73) % Band Neutrophils % 2 (0-6) % Lymphocytes % (Manual) 38.0 (18-44) % Monocytes % (Manual) 5 (3-9) % Eosinophils % (Manual) 3 (0-4) % Nucleated RBC % Not Reportable Abs Neuts (Manual) 7.45 H (1.3-6.7) K/mm3 Abs Lymphs (Manual) 5.24 H (1.1-4.5) K/mm3 Abs Monocytes (Manual) 0.69 (0.1-0.90) K/mm3 Absolute Eos (Manual) 0.41 (0.02-0.50) K/mm3 Platelet Estimate Increased (Adequate) Hypochromasia 1+ Anisocytosis 2+ Microcytosis 1+ (NORMAL) Schistocytes None seen Sodium 136 L (137-145) mmol/L Potassium 3.9 (3.4-5.0) mmol/L Chloride 102 (98-107) mmol/L Carbon Dioxide 24 (22-30) mmol/L Anion Gap 10 (4-12) mmol/L BUN 18 H (7-17) mg/dL Creatinine 0.87 (0.7-1.0) mg/dL Estim Creat Clear Calc 58 ml/min Estimated GFR > 60 (59 - ) Glucose 97 (65-110) mg/dL POC Capillary Glucose (65-105) mg/dl Calcium 9.5 (8.4-10.2) mg/dL Total Bilirubin 0.1 L (0.2-1.3) mg/dL AST 34 (14-36) U/L ALT 12 (6-35) U/L Alkaline Phosphatase 101 (38-126) U/L Troponin I < 0.012 (0.000-0.034) ng/mL Total Protein 8.1 (6.3-8.2) g/dL Albumin 4.5 (3.5-5.1) g/dL Lipase 114 (23-300) U/L Beta HCG, Quant < 2.39 mIU/ML Urine Color Yellow (Yellow) Urine Appearance Clear (Clear) Urine pH 6.0 (5.0-9.0) Ur Specific Pollock 1.004 (1.001-1.035) Urine Protein Negative (Negative) mg/dL Urine Glucose (UA) Negative (Negative) mg/dL Urine Ketones Negative (Negative) mg/dL Ur Blood (Man) Negative (Negative) Urine Nitrate Negative (Negative) Urine Bilirubin Negative (Negative) Urine Urobilinogen 0.2 (<2.0) mg/dL Leukocyte Esterase Rfl Negative (Negative) YELITZA/UL POC Urine HCG, Qual Positive (Negative) 06/20/25 Range/Units 20:48 WBC (4.5-10.0) K/mm3 RBC (4.2-5.4) M/mm3 Hgb (12.0-15.0) g/dL Hct (37.0-47.0) % MCV (80-100) fl MCH (26-34) pg MCHC (32-36) g/dl RDW (11.5-14.5) % Plt Count (150-375) k/mm3 MPV (7.4-10.4) fl Immature Gran % (Auto) Neut % (Auto) Lymph % (Auto) Redwood % (Auto) Eos % (Auto) Baso % (Auto) Lymph # (Auto) Redwood # (Auto) Eos # (Auto) Baso # (Auto) Abs Immat Gran (auto) Absolute Neuts (auto) Absolute Nucleated RBC Total Counted Neutrophils % (Manual) (46-73) % Band Neutrophils % (0-6) % Lymphocytes % (Manual) (18-44) % Monocytes % (Manual) (3-9) % Eosinophils % (Manual) (0-4) % Nucleated RBC % Abs Neuts (Manual) (1.3-6.7) K/mm3 Abs Lymphs (Manual) (1.1-4.5) K/mm3 Abs Monocytes (Manual) (0.1-0.90) K/mm3 Absolute Eos (Manual) (0.02-0.50) K/mm3 Platelet Estimate (Adequate) Hypochromasia Anisocytosis Microcytosis (NORMAL) Schistocytes Sodium (137-145) mmol/L Potassium (3.4-5.0) mmol/L Chloride (98-107) mmol/L Carbon Dioxide (22-30) mmol/L Anion Gap (4-12) mmol/L BUN (7-17) mg/dL Creatinine (0.7-1.0) mg/dL Estim Creat Clear Calc ml/min Estimated GFR (59 - ) Glucose (65-110) mg/dL POC Capillary Glucose 98 (65-105) mg/dl Calcium (8.4-10.2) mg/dL Total Bilirubin (0.2-1.3) mg/dL AST (14-36) U/L ALT (6-35) U/L Alkaline Phosphatase (38-126) U/L Troponin I (0.000-0.034) ng/mL Total Protein (6.3-8.2) g/dL Albumin (3.5-5.1) g/dL Lipase (23-300) U/L Beta HCG, Quant mIU/ML Urine Color (Yellow) Urine Appearance (Clear) Urine pH (5.0-9.0) Ur Specific Pollock (1.001-1.035) Urine Protein (Negative) mg/dL Urine Glucose (UA) (Negative) mg/dL Urine Ketones (Negative) mg/dL Ur Blood (Man) (Negative) Urine Nitrate (Negative) Urine Bilirubin (Negative) Urine Urobilinogen (<2.0) mg/dL Leukocyte Esterase Rfl (Negative) YELITZA/UL POC Urine HCG, Qual (Negative) Imaging Data Attestation: I personally reviewed and interpreted this imaging study as follows: Radiologist's impression: CT abd/pelvis: Liquid stool in the colon consistent with diarrheal disease with wall thickening of the small bowel consistent with mild enteritis Discharge Plan Discharge Clinical Impression: Enteritis Patient Disposition: Home Condition: Stable Instructions: Antibiotic Form, Enteritis (ED) Additional Instructions: Your CT scan was consistent with enteritis. This is usually treated symptomatically. Continue to drink plenty of p.o. fluids. Your given a prescription for Zofran to take this as prescribed. Follow-up with your PCP in the next week for re-evaluation. Return to the ED for any new or worsening symptoms. Patient Language: Luxembourgish Prescriptions: New ondansetron 4 mg tablet,disintegrating 4 mg PO Q8H PRN (Reason: nausea and vomiting) Qty: 14 0RF No Action benzonatate 100 mg capsule 100 mg PO BID PRN (Reason: cough) Qty: 14 0RF albuterol sulfate 90 mcg/actuation HFA aerosol inhaler 2 puff inhalation QID PRN (Reason: shortness of breath or wheezing) Qty: 6.7 0RF (DME) Aerochamber MV Spacer See Rx Instructions .Route Qty: 1 0RF Rx Instructions: As directed Follow-up/Referrals: UNKNOWN,DOCTOR [Primary Care Provider]
[2025-06-20 20:13] LABS: BEDSIDEPREGUCG Positive (Negative)
[2025-06-20 20:17] LABS: Add Urine Microscopic? NO; Appearance Urine Clear (Clear); Glucose Urine UA Negative (Negative); Leukocyte Esterase Ur Negative LEU/UL (Negative); Nitrate Urine Negative (Negative); Specific Grav Ur 1.004 (1.001-1.035)
[2025-06-20 20:22] LABS: Hematocrit 36.6 % (37.0-47.0); Hemoglobin 11.2 g/dL (12.0-15.0); Mean Corpuscular HGB Conc 30.6 g/dl (32-36); Mean Corpuscular Hemoglobin 23.2 pg (26-34); Mean Corpuscular Volume 75.9 fl (80-100); Platelet Count Result 404 k/mm3 (150-375); Red Blood Count 4.82 M/mm3 (4.2-5.4); White Blood Count 13.8 K/mm3 (4.5-10.0)
[2025-06-20 20:46] LABS: Band Neutrophils Percent 2 % (0-6); Eosinophils Absolute Manual 0.41 K/mm3 (0.02-0.50); Eosinophils Percent Manual 3 % (0-4); Lymphocytes Absolute Manual 5.24 K/mm3 (1.1-4.5); Lymphocytes Percent Manual 38.0 % (18-44); Monocytes Absolute Manual 0.69 K/mm3 (0.1-0.90); Monocytes Percent Manual 5 % (3-9); Neutrophils Absolute Manual 7.45 K/mm3 (1.3-6.7); Neutrophils Percent Manual 52 % (46-73); Schistocytes None Seen; Total Cells Counted 100
[2025-06-20 20:47] LABS: Alanine Aminotransferase 12 U/L (6-35); Albumin Level 4.5 g/dL (3.5-5.1); Alkaline Phosphatase 101 U/L (38-126); Anion Gap 10 mmol/L (4-12); Anisocytosis 2+; Aspartate Amino Transferase 34 U/L (14-36); Bilirubin,Total 0.1 mg/dL (0.2-1.3); Blood Urea Nitrogen 18 mg/dL (7-17); Calcium 9.5 mg/dL (8.4-10.2); Carbon Dioxide 24 mmol/L (22-30); Chloride 102 mmol/L (98-107); Estimated CRCL calculation 58 ml/min; Estimated Glomerular Filt Rate > 60; Glucose 97 mg/dL (65-110); Hypochromasia 1+; Lipase 114 U/L (23-300); Potassium 3.9 mmol/L (3.4-5.0); Sodium 136 mmol/L (137-145); Total Protein 8.1 g/dL (6.3-8.2)
[2025-06-20 20:48] LABS: Microcytosis 1+ (NORMAL)
[2025-06-20 20:49] LABS: Beta HCG Quantitative < 2.39 mIU/ML
[2025-06-20 20:54] LABS: Troponin I < 0.012 ng/mL (0.000-0.034)
[2025-06-20 22:23] VITALS: BP 118/76; PULSE 80; RESP 16; O2SAT 99
== END 2025-06-20 22:26 | disposition home or self-care (01) ==
PROVIDERS: Emergency Medicine; Emergency Provider Student in an Organized Health Care Education/Training Program
DX: K52.9 Noninfective gastroenteritis and colitis, unspecified (principal)
CPT/HCPCS: 36415; 74177; 80053; 81003; 81025; 82948; 83690; 84484; 84702; 85025; 99284; Q9967